=== PATIENT | female | born 1980 | race Hispanic/Latino ===

== ENCOUNTER 2019-02-16 19:58 | Observation (INO) | payer SELFPAY ==
[2019-02-16 20:32] LABS: Bilirubin Negative (Negative); Blood, Urine 2+ (Negative); Clarity Clear (Clear); Glucose, Urine (Dipstick) Normal (Negative); Leukocyte 250 Leu/uL (Negative); Nitrite Negative (Negative); Protein, Urine (Dipstick) 20 mg/dL (Neg-Trace); RBC/HPF 0-3 HPF (0-3); WBC/HPF 21-50 HPF (0-3)
[2019-02-16 20:44] LABS: Sperm/HPF Rare HPF (None Seen)
[2019-02-16 20:45] LABS: Bacteria/HPF 2+ HPF (None Seen); Mucous/LPF 1+ LPF (<2+)
[2019-02-16 20:50] LABS: ALT (SGPT) 23 U/L (8-55); AST (SGOT) 21 U/L (5-34); Albumin 3.9 g/dL (3.5-5.0); Alkaline Phosphatase 70 U/L (40-110); Anion Gap 10 mmol/L (10-20); BUN (Urea Nitrogen) 9 mg/dL (7.0-18.7); Bilirubin, Total 0.3 mg/dL (0.2-1.2); Calc. Creatinine Clearance 0 mL/min (70-130); Calcium 8.7 mg/dL (7.8-10.44); Carbon Dioxide 25 mmol/L (22-29); Chloride 111 mmol/L (98-107); Estimated GFR-MDRD Greater than 90; Globulin 3.1 g/dL (2.4-3.5); Glucose 112 mg/dL (70-105); Potassium 3.8 mmol/L (3.5-5.1); Sodium 142 mmol/L (136-145)
[2019-02-16 20:52] LABS: Hemoglobin 6.7 g/dL (12.0-16.0); Mean Corpuscular HGB CONC 29.3 g/dL (32.0-36.0); Mean Corpuscular Hemoglobin 17.2 pg (27.0-31.0); Mean Corpuscular Volume 58.8 fL (78.0-98.0); RBC Distribution Width 19.6 % (11.5-14.5); Red Blood Cell (RBC) Count 3.87 mill/uL (4.20-5.40)
[2019-02-16 20:56] LABS: #Basophils 0.1 thou/uL (0.0-0.2); #Eosinphils 0.1 thou/uL (0.0-0.7); #Lymphocytes 1.9 thou/uL (1.20-3.40); #Monocytes 0.6 thou/uL (0.11-0.59); #Neutrophils 5.3 thou/uL (1.40-6.50); %Eosinophils 1.4 % (0.0-10.0); %Lymphocytes 23.2 % (21.0-51.0); %Neutrophils 66.5 % (42.0-75.0); Anisocytosis MODERATE=16-30 cells (100X) (0-5/hpf); Elliptocytes SLIGHT = 2-5 cells (100X) (0-1/hpf); Hypochromia SLIGHT = 6-15 cells (100X) (0-5/hpf); MDiff Complete? YES; Platelet Count 390 thou/uL (130-400); Platelet Morphology Comment Appears Adequate; Reflex for Review?? YES
[2019-02-16] MEDS ORDERED: Ondansetron PF 4 MG/2 ML Vial ONE (21:39)
[2019-02-16] MEDS ORDERED: Morphine 4 MG/ML VIAL ONE (21:39)
--- NOTE | 2019-02-16 22:28 | CT ---
CT ABDOMEN AND PELVIS WITH IV CONTRAST: 02/16/19 INDICATION: Left flank pain. Lung bases clear. Liver, spleen and pancreas unremarkable. Post cholecystectomy change noted. Stomach and duodenum unre markable. Kidneys unremarkable. No hydronephrosis or urinary tract calculus. Small bowel loops normal caliber. Appendix appears normal. Colon unremarkable. Images through the pelvis show mildly prominent uterus. There is a cyst in the left adnexa consistent with a left ovarian cyst which measures approximately 4.0 cm. No free fluid. IMPRESSION: 1. Left adnexal cyst consistent with a left ovarian cyst. Correlate with serum HCG level to excl ude ectopic. If serum HCG is negative, suggest follow-up pelvic ultrasound exam in 4 to 6 weeks to en sure resolution. 2. CT abdomen and pelvis otherwise unremarkable. POS: OG
[2019-02-16 23:01] LABS: Bilirubin Negative (Negative); Blood, Urine 2+ (Negative); Clarity Clear (Clear); Glucose, Urine (Dipstick) Normal (Negative); Leukocyte 25 Leu/uL (Negative); Mucous/LPF Rare LPF (<2+); Nitrite Negative (Negative); Pregnancy Test - Urine (BHCG) Negative (Negative); Pregu Control Background? CLEAR/WHITE (CLR/WHITE); Pregu Control Bar Appear? YES (CONTROL BAR); Protein, Urine (Dipstick) Negative (Neg-Trace); RBC/HPF Greater than 50 HPF (0-3); Specific Gravity 1.048 (1.002-1.036); Squamous Epithelial 0-3 HPF (0-3); Urobilinogen Normal mg/dL (Less than 2); WBC/HPF 21-50 HPF (0-3)
[2019-02-16 23:07] LABS: Bacteria/HPF 1+ HPF (None Seen)
[2019-02-16] MEDS ORDERED: cefTRIAXone\\ROCEPHIN 1 GM VIAL ONE (23:22)
[2019-02-17 01:03] VITALS: BMI 57.1
--- NOTE | 2019-02-17 01:24 | PDOC.FPRHP ---
- History of Present Illness Chief Complaint: Right-Sided Back Pain History of Present Illness: Mrs. Catalino Saini is a 38 y/o female with a PMH significant for Obesity and DM2 who presents to the ED for evaluation of right-sided back pain. She stated that the pain has been present for several months, and is sharp in nature without radiation. At the time of presentation, she stated that the pain was a 10/10. She states that the pain typically resolves spontaneously and that she does not take medication or seek therapy for it. She denies any traumatic events, such as falls or MVAs. She states that she has also noticed that she has had increasing fatigue over the past several months, which she attributed to being overweight, but found that she is constantly tired despite getting adequate rest each night. She denies any fevers, chills, changes in weight, N/V/ D, dysuria, hematuria or black or bloody stools, or a history of anxiety or depression. ED Course: While in the ED, Mrs. Catalino Saini received 1L NS, Ceftriaxone 1 g IV, Morphine 4 mg IV and Zofran 4 mg IV. UA revealed +Bacteria, Leukocyte Esterases and RBCs. CT Scan revealed a left-sided ovarian cyst. - Allergies/Adverse Reactions Allergies Allergy/AdvReac Type Severity Reaction Status Date / Time Penicillins Allergy Rash Verified 02/17/19 01:19 - Home Medications Comments: Th patient states that she had previously taken Metformin BID, but was unsure of the dosage. - History PMHx: Obesity, DM2 PSHx: None FHx: +HTN, +DM2, +Obesity Social: Smokes 1 PPW, denies EtOH and drug abuse. Code: Full - Review of Systems General: reports: fatigue. denies: fever/chills, weight/appetite/sleep changes Eyes: denies: vision changes ENT: denies: nasal congestion, rhinorrhea Respiratory: reports: shortness of breath, exercise intolerance. denies: cough , congestion Cardiovascular: denies: chest pain, palpitation, edema Gastrointestinal: denies: nausea, vomiting, diarrhea, constipation, abdominal pain, GI bleeding Genitourinary: denies: dysuria, polyuria Skin: denies: rashes, lesions Musculoskeletal: reports: pain, tenderness, stiffness Neurological: denies: syncope, weakness Psychological: denies: anxiety, depression - Vital signs BP: [160/83] HR: [108] RR: [20] Tmax: [98.4] Pox: [99]% on [Room] Wt: [151 kg ] - Physical Exam Constitutional: NAD, awake, alert and oriented, well developed HEENT: normocephalic and atraumatic, PERRLA, EOMI, conjunctiva clear, no scleral icterus, grossly normal vision, grossly normal hearing, normal nasal mucosa, MMM, oropharynx clear, good dention, other (Mucosal pallor) Neck: supple, FROM, trachea midline, no LAD Chest: no-tender to palpation, no lesions Heart: RRR, normal S1/S2, no murmurs/rubs/gallops, pulses present, no edema Lungs: CTAB, no respiratory distress, good air movement, no rales/rhonchi, no wheezing, no retractions Abdomen: non-tender, bowel sounds present, no masses/distention Musculoskeletal: normal structure, normal tone, ROM grossly normal Neurological: no focal deficit, normal sensation Skin: no rash/lesions, good turgor, capillary refill <2 seconds, no jaundice Heme/Lymphatic: no unusual bruising or bleeding, no purpura, no petechia, no LAD Psychiatric: normal mood and affect, good judgment and insight, intact recent and remote memory FMR H&P: Results - Labs Result Diagrams: 02/17/19 05:49 02/16/19 20:23 Lab results: WBC 8.0 thou/uL (4.8-10.8) 02/16/19 20:23 Hgb 6.7 g/dL (12.0-16.0) L 02/16/19 20:23 Hct 22.7 % (36.0-47.0) L 02/16/19 20:23 MCV 58.8 fL (78.0-98.0) L 02/16/19 20:23 Plt Count 390 thou/uL (130-400) 02/16/19 20:23 Neutrophils % 66.5 % (42.0-75.0) 02/16/19 20:23 Sodium 142 mmol/L (136-145) 02/16/19 20:23 Potassium 3.8 mmol/L (3.5-5.1) 02/16/19 20:23 Chloride 111 mmol/L (98-107) H 02/16/19 20:23 Carbon Dioxide 25 mmol/L (22-29) 02/16/19 20:23 BUN 9 mg/dL (7.0-18.7) 02/16/19 20:23 Creatinine 0.72 mg/dL (0.6-1.1) 02/16/19 20:23 Glucose 112 mg/dL (70-105) H 02/16/19 20:23 Calcium 8.7 mg/dL (7.8-10.44) 02/16/19 20:23 Total Bilirubin 0.3 mg/dL (0.2-1.2) 02/16/19 20:23 AST 21 U/L (5-34) 02/16/19 20:23 ALT 23 U/L (8-55) 02/16/19 20:23 Alkaline Phosphatase 70 U/L (40-110) 02/16/19 20:23 Serum Total Protein 7.0 g/dL (6.0-8.3) 02/16/19 20:23 Albumin 3.9 g/dL (3.5-5.0) 02/16/19 20:23 Lipase 18 U/L (8-78) 02/16/19 20:23 Urine Ketones Negative mg/dL (Negative) 02/16/19 22:40 Urine Blood 2+ (Negative) A 02/16/19 22:40 Urine Nitrite Negative (Negative) 02/16/19 22:40 Ur Leukocyte Esterase 25 Garrick/uL (Negative) 02/16/19 22:40 Urine RBC Greater than 50 HPF (0-3) A 02/16/19 22:40 Urine WBC 21-50 HPF (0-3) A 02/16/19 22:40 Ur Squamous Epith Cells 0-3 HPF (0-3) 02/16/19 22:40 Urine Bacteria 1+ HPF (None Seen) A 02/16/19 22:40 FMR H&P: A/P - Problem List (1) Anemia Current Visit: Yes Status: Acute Code(s): D64.9 - ANEMIA, UNSPECIFIED (2) Muscle spasm Current Visit: Yes Status: Acute Code(s): M62.838 - OTHER MUSCLE SPASM (3) Cystitis Current Visit: Yes Status: Acute Code(s): N30.90 - CYSTITIS, UNSPECIFIED WITHOUT HEMATURIA (4) Obesity Current Visit: Yes Status: Acute Code(s): E66.9 - OBESITY, UNSPECIFIED (5) Diabetes mellitus type 2 in obese Current Visit: Yes Status: Acute Code(s): E11.69 - TYPE 2 DIABETES MELLITUS WITH OTHER SPECIFIED COMPLICATION; E66.9 - OBESITY, UNSPECIFIED - Plan Patient is a 38 y/o female admitted to the Medical Floor for right- sided back pain. 1. Muscle Spasm -Patient is obese w/o Hx of trauma -Pain is chronic in nature and w/o worrisome radiation or additional signs or symptoms -Physical exam limited by body habitus - TTP over right thoracic region -CT Chest/ABD: Left ovarian cyst, otherwise unremarkable -Consider Ibuprofen and muscle relaxants for adequate pain control -Patient should be encouraged to increase physical activity following discharge , supplementing with heat and anti-inflammatory medication regimen 2. Cystitis -Patient currently denies urinary symptoms -UA: +Bacteria, +Leukocyte Esterase, +RBCs -s/p Ceftriaxone 1 g IV in ED - will consider switching to PO antibiotic -CT Chest/ABD: Left ovarian cyst, otherwise unremarkable -bHCG: Negative 3. Anemia -H.7 on 02/16/19 -s/p 1L NS in ED -Physical exam was significant for mild tachycardia and mucosal pallor -Patient admits to menses lasting 5-7 days, typically requiring 4-5 tampons per day -Patient denies known bleeding disorders or bloody stools -Patient has not had a Pap smear in ~10 years -Patient has never received a colonoscopy -Will order Iron Studies and evaluate further -Consider initiating Fe supplementation following discharge 4. DM2 -Blood Glucose: 112 on 02/16/19 -Patient is unsure of previous medication regimen or if DM2 is adequately controlled -Will not restart home medication regimen at this time -Encourage healthy dietary choices and increased physical activity in an outpatient setting Code: Full Diet: Heart Healthy / Carbohydrate Conscious Activity: Ad Leyla VTE PPx: None - Patient is at low risk for VTE based on Tian Score Dispo: Patient is admitted to the Medical Floor for Muscle Spasm, Cystitis and Anemia - s/p 1U pRBCs. Will transition to PO antibiotics for treatment of Cystitis and begin adequate medication regimen for Muscle Spasm. Expected LOS < 24H. FMR H&P: Upper Level - Pertinent history 38 y/o F no known medical hx presented to the ER because of R back pain. She reports it has been ongoing for the past couple of months on and off, but got worse this past week. She reports some dysuria, urinary frequency over the past week. She endorses feeling more fatigued and short of breath with exertion for the past several months. She has never been on iron or had a blood transfusion. She reports the [facility] office told her that her iron was low after each though. She reports regular menses each month with periods that last 8 days. The first 3 days are heavy, soaking through about 5 pads and then the last days are [employer]. She denies any hematemesis, hematochezia, melena. - Pertinent findings BP 129/72, HR 68, RR 17, O2 sat 100% on RA PE: Gen - alert, oriented, NAD Eyes - conjunctival pallor HENT - pallor of the palate CV - RRR, no murmurs Lungs - CTAB, no wheezes Back - No CVAT, R>L paraspinal muscle spasms in low thoracic to upper lumbar spine Labs: WBC 8, Hb 6.7, Hct 22.7, BUN 9, Cr 0.72, UA 2+ blood, 1+ bact, 21-[address] abd/pelvis: L adnexal cyst, otherwise unremarkable - Plan Date/Time: 02/17/19 [id number] I, Liza Lobato MD, PGY-3, have evaluated this patient and agree with findings/ plan as outlined by diversity intern resident. Pertinent changes/additions are listed here. 1. Symptomatic Anemia Pt with Hb 6.7 and MCV 58.8, likely chronic iron deficiency anemia -Will transfuse 1U PRBC -Check iron studies -Repeat Hb in AM -May need iron tabs 2. Acute Cystitis Pt with symptoms and UA consistent with UTI, no evidence of pyelonephritis. s/p 1 dose rocephin -Will treat with bactrim -UCx pending 3. Muscle spasm -Will do trial of cyclobenzaprine Dispo: Obs on medical LOS: likely less than 48 hours Addendum - Attending - Attending Attestation Date/Time: 02/16/19 3574 I personally evaluated the patient and discussed the management with Dr. Brothers and Dr. Lobato I agree with the History, Examination, Assessment and Plan documented above with any addition or exceptions noted below. 38 yo female presents for back pain and fatigue. Patient reports a previous hx of iron deficency anemia during and after pregnancies. Patient noted to have low Hb today in ER. Local right-sided flank pain that is present with minimal palpation. No CVA tenderness. Occasional epigastric pain. No other GI symptoms. Will place patient in obs overnight for blood transfusion and iron infusion. Will give at least 2 units. Workup pending but likely iron related. Patient reports she has never taken oral iron. Hold NSAIDs incase GI related. Acute cystitis. No evidence of pyelo. Switch to PO antibx. Follow up on cultures. Otherwise asymptomatic. Muscle spasm. Will need OMT/PT. Start muscle relaxant. Demetria
[2019-02-17] MEDS ORDERED: Ondansetron ODT 4 MG TAB PO PRN (01:59)
[2019-02-17] MEDS ORDERED: Acetaminophen 325 MG TAB PO PRN (01:59)
[2019-02-17] MEDS ORDERED: Ibuprofen 600 MG TAB PO PRN (02:42)
[2019-02-17] MEDS ORDERED: Cyclobenzaprine 10 MG TAB PO PRN (02:45)
--- NOTE | 2019-02-17 05:43 | PDOC.FM ---
- Subjective Subjective: Pt states she is feeling about the same today. Her back pain is consistent and sharp. She states the pain medications help but the pain is returning. She denies heavy periods, irregular periods, or history/family history of bleeding/ blood disorders. She states she did not feel much better following the transfusion. She states the pain is worse with movement but not worsened by deep breathing. The pain starts about midaxillary and wraps to her spine. She reports being up to date on her childhood vaccines. She smokes one pack per week and recently started this in July when she moved to [place]. She is currently working 2 8hr jobs per day. - Objective MAR Reviewed: Yes Vital Signs & Weight: Vital Signs (12 hours) Temp Pulse Resp BP Pulse Ox 02/17/19 04:24 98.0 F 52 L 12 106/62 99 02/17/19 02:30 98.0 F 65 18 92/56 L 95 02/17/19 00:45 98.0 F 67 18 123/76 95 Weight Weight 151.046 kg Result Diagrams: 02/17/19 05:49 02/16/19 20:23 Phys Exam - Physical Examination Constitutional: NAD (Morbidly obese) HEENT: moist MMs Neck: no JVD Respiratory: no wheezing, clear to auscultation bilateral Cardiovascular: RRR 2/6 holosystolic murmur over the apex Gastrointestinal: soft, non-tender, no distention, positive bowel sounds Musculoskeletal: no edema, pulses present Neurological: moves all 4 limbs Psychiatric: A&O x 3 Skin: cap refill <2 seconds Dx/Plan (1) Anemia Code(s): D64.9 - ANEMIA, UNSPECIFIED Status: Acute (2) Cystitis Code(s): N30.90 - CYSTITIS, UNSPECIFIED WITHOUT HEMATURIA Status: Acute (3) Diabetes mellitus type 2 in obese Code(s): E11.69 - TYPE 2 DIABETES MELLITUS WITH OTHER SPECIFIED COMPLICATION; E66.9 - OBESITY, UNSPECIFIED Status: Acute (4) Muscle spasm Code(s): M62.838 - OTHER MUSCLE SPASM Status: Acute (5) Obesity Code(s): E66.9 - OBESITY, UNSPECIFIED Status: Acute - Plan Plan: This is a 38 yo female with a pmh of obesity Symptomatic anemia, likely 2/2 chronic iron deficiency anemia -S/P 1u PRBCs -Iron studies consistent with iron deficiency anemia, I will start on iron supplement -MCV of 58.8 -Repeat H/H is 6.5/21.8, I am giving another unit of blood UTI -Treating with bactrim -Negative test Muscle spasm -Trial of NSAIDS and muscle relaxers -BMI of 57.2 is likely contributing to her pain -Pt needs outpt follow up to discuss [facility] weight loss plan -Pending chest xray Morbid obesity -Likely playing a role in pt's symptoms -Consult lubricator granulator
[2019-02-17 06:33] LABS: Hemoglobin 6.5 g/dL (12.0-16.0); Mean Corpuscular HGB CONC 29.9 g/dL (32.0-36.0); Mean Corpuscular Hemoglobin 18.3 pg (27.0-31.0); Mean Corpuscular Volume 61.4 fL (78.0-98.0); Mean Platelet Volume 6.4 fL (7.4-10.4); Platelet Count 325 thou/uL (130-400); RBC Distribution Width 21.9 % (11.5-14.5); Red Blood Cell (RBC) Count 3.55 mill/uL (4.20-5.40); White Blood Cell (WBC) Count 5.3 thou/uL (4.8-10.8)
[2019-02-17 06:34] LABS: #Eosinphils 0.1 thou/uL (0.0-0.7); #Lymphocytes 1.3 thou/uL (1.20-3.40); #Monocytes 0.4 thou/uL (0.11-0.59); #Neutrophils 3.4 thou/uL (1.40-6.50); %Basophils 0.6 % (0.0-1.0); %Eosinophils 1.4 % (0.0-10.0); %Lymphocytes 25.3 % (21.0-51.0); %Monocytes 7.7 % (0.0-10.0)
[2019-02-17 06:38] LABS: Iron 13 ug/dL (50-170); Iron Binding Capacity, Total 389 mcg/dL (265-497)
[2019-02-17 07:00] LABS: Hemoglobin A1c 5.2 % (4.0-6.0)
[2019-02-17 07:05] LABS: Hypochromia MODERATE=16-30 cells (100X) (0-5/hpf); MDiff Complete? YES; Microcytosis MODERATE=15-30 cells (100X) (0-5/hpf); Ovalocytes SLIGHT = 2-5 cells (100X) (0-1/hpf); Platelet Morphology Comment Appears Adequate; Polychromasia SLIGHT = 2-3 cells (100X) (0-2/hpf); Tear Drops SLIGHT = 2-5 cells (100X) (0-1/hpf)
[2019-02-17] MEDS ORDERED: Iron, Sodium Ferric Gluconate 250 MG in Sodium Chloride 0.9% 100 ML IVPB SCH (07:30)
[2019-02-17] MEDS ORDERED: Iron Sucrose Complex 200 MG in Sodium Chloride 0.9% 250 ML 250 ML IVPB SCH (07:30)
[2019-02-17] MEDS: Acetaminophen 325 MG TAB PO SCH ×3 (08:04→15:13)
[2019-02-17] MEDS: Ferrous Sulfate 325 MG TAB PO SCH ×2 (08:04→16:54)
[2019-02-17] MEDS: Ibuprofen 200 MG TAB PO SCH ×2 (08:47→14:10)
--- NOTE | 2019-02-17 08:47 | RAD ---
RADIOGRAPH CHEST 2 VIEWS: 02/17/2019 7:39 a.m. HISTORY: A 38-year-old female with posterior chest pain. FINDINGS: There is no air space density, pulmonary edema, pleural effusion, or pneumothorax. There are mild to moderate degenerative disk changes at the mid and lower thoracic spine. The vertebral body heights ar e maintained. IMPRESSION: 1. No acute pulmonary findings. 2. Mid and lower thoracic spondylosis. 3. No obvious compression fracture of the thoracic spine. jn [] POS: CET
[2019-02-17] MEDS ORDERED: Sulfameth/Trimethoprim DS 800-160mg TAB PO SCH (09:00)
[2019-02-17] MEDS ORDERED: Famotidine 20 MG TAB PO SCH (09:00)
[2019-02-17] MEDS ORDERED: FLU VACC QS2019-20(6MOS UP)/PF 60 MCG/0.5 ML SYRINGE IM ONE (09:00)
[2019-02-17] MEDS ORDERED: Polyethylene Glycol 3350 17 GM Packet PO SCH (09:00)
[2019-02-17 16:32] LABS: Hemoglobin 7.3 g/dL (12.0-16.0); Mean Corpuscular HGB CONC 29.8 g/dL (32.0-36.0); Mean Corpuscular Volume 63.7 fL (78.0-98.0); Mean Platelet Volume 6.2 fL (7.4-10.4); Platelet Count 325 thou/uL (130-400); RBC Distribution Width 24.4 % (11.5-14.5); Red Blood Cell (RBC) Count 3.85 mill/uL (4.20-5.40); White Blood Cell (WBC) Count 6.1 thou/uL (4.8-10.8)
[2019-02-17 17:12] LABS: #Basophils 0.1 thou/uL (0.0-0.2); #Eosinphils 0.1 thou/uL (0.0-0.7); #Lymphocytes 1.3 thou/uL (1.20-3.40); #Monocytes 0.6 thou/uL (0.11-0.59); #Neutrophils 4.1 thou/uL (1.40-6.50); %Basophils 1.1 % (0.0-1.0); %Eosinophils 1.2 % (0.0-10.0); %Lymphocytes 21.6 % (21.0-51.0); %Monocytes 9.5 % (0.0-10.0); %Neutrophils 66.6 % (42.0-75.0); Hypochromia MODERATE=16-30 cells (100X) (0-5/hpf); MDiff Complete? YES; Microcytosis MARKED = >30 cells (100X) (0-5/hpf); Platelet Morphology Comment Appears Adequate; Polychromasia SLIGHT = 2-3 cells (100X) (0-2/hpf); Schistocytes SLIGHT = 2-5 cells (100X) (0-1/hpf)
[2019-02-17 18:15] VITALS: BP 112/74; TEMP 98.3
--- NOTE | 2019-02-20 11:58 | DIS ---
DATE OF ADMISSION: 02/16/2019 DATE OF DISCHARGE: 02/17/2019 ADMITTING ATTENDING: Dr. Evita Hickey. DISCHARGE ATTENDING: Dr. Chris Bonner. RESIDENT: Job Ascencio DO CONSULTS: None. PROCEDURES: Abdomen and pelvis CT showing left adnexal cyst consistent with left ovarian cyst. Correlate with serum hCG and follow up with pelvic ultrasound in 4 to 6 weeks. Otherwise, unremarkable CT, chest x-ray showing no acute pulmonary findings, mild mid and lower thoracic spondylosis, no obvious compression fracture of the thoracic spine. PRIMARY DIAGNOSES: 1. Symptomatic anemia, likely secondary to chronic iron-deficiency anemia. 2. Urinary tract infection. 3. Thoracic muscle spasm. SECONDARY DIAGNOSIS: Morbid obesity. DISCHARGE MEDICATIONS: 1. Flexeril 10 mg p.o. t.i.d. p.r.n. muscle spasm. 2. Ferrous sulfate 325 mg p.o. b.i.d. 3. Bactrim 1 tab p.o. b.i.d. for 10 days. 4. Tylenol 650 mg p.o. q.4 hours p.r.n. pain/fever. 5. 600 mg ibuprofen q.6 hours p.r.n. pain. DISCONTINUED MEDICATIONS: None. BRIEF HISTORY OF PRESENT ILLNESS/HOSPITAL COURSE: This is a 38-year-old female with past medical history significant for obesity, type-2 diabetes, presents to the ER with a chief complaint of right-sided back pain. She states it has been present for several months, sharp in nature without radiation. The patient was admitted for pyelonephritis despite normal CT abdomen and pelvis. The patient was found to be profoundly anemic with a hemoglobin of 6.5. The patient was transfused 2 units of blood and discharge hemoglobin was 7.3. In addition, iron studies were performed showing an iron of 13, TIBC of 394, and iron percent saturation of 3, ferritin was less than 2. The patient received an additional iron transfusion while she was here and sent home on b.i.d. iron supplementation. During the patient's stay, the patient felt some improvement following the blood and iron transfusion. In regard to her back pain, on physical exam, the patient had exquisite tenderness of the skin and muscles surrounding her right-sided mid thoracic region. There was a palpable muscle spasm present. No CVA tenderness, no rash or lesions present. The patient did improve some with Tylenol, ibuprofen, and Flexeril. DISPOSITION: Stable. DISCHARGE INSTRUCTIONS: 1. Location: Home. 2. Diet: Low carb. 3. Activity: As tolerated. 4. Follow up with PCP. I recommended our clinic to her as well as [facility]. Job ID: [id number]
== END 2019-02-17 18:32 | disposition home or self-care (01) ==
LOC: ERS 19:58 → T4-B 23:44
PROVIDERS: ADMIT Student in an Organized Health Care Education/Training Program; ATTEND Student in an Organized Health Care Education/Training Program
DX: D64.9 Anemia, unspecified (principal); N30.00 Acute cystitis without hematuria; M62.838 Other muscle spasm; M54.9 Dorsalgia, unspecified; E11.9 Type 2 diabetes mellitus without complications; F17.210 Nicotine dependence, cigarettes, uncomplicated; G47.30 Sleep apnea, unspecified; M47.814 Spondylosis without myelopathy or radiculopathy, thoracic region; E66.01 Morbid (severe) obesity due to excess calories; Z68.43 Body mass index [BMI] 50.0-59.9, adult; Z79.84 Long term (current) use of oral hypoglycemic drugs; Z88.0 Allergy status to penicillin
CPT/HCPCS: 36415; 36430; 51701; 71046; 74177; 80053; 81003; 81015; 81025; 82728; 83036; 83540; 83550; 83690; 85025; 85060; 86850; 86900; 86901; 86922; 90471; 90686; 96361; 96365; 96366; 96375; A4353; G0008; G0378; J0696; J2270; J2405; J2916; J3490; P9016